=== PATIENT | female | born 1960 | race Caucasian/White ===

== ENCOUNTER 2016-06-28 10:51 | Observation (INO) | payer BC ==
[2016-06-30] MEDS ORDERED: CELEBREX100 MG PO (08:16)
[2016-06-30] MEDS ORDERED: MONTELUKAST SOD10 MG PO (08:16)
[2016-06-30] MEDS ORDERED: PLAQUENIL DPS200 MG PO (08:17)
[2016-06-30] MEDS ORDERED: ACCUNEB DP0.63 MG/3 IH (08:17)
[2016-06-30] MEDS ORDERED: SYNTHROID PO (08:17)
[2016-06-30] MEDS ORDERED: SYMBICORT160 MCG/6 IH (08:17)
[2016-06-30] MEDS ORDERED: NORCO 5-325 TA1 EACH PO (08:18)
== END 2016-06-28 17:02 | disposition home or self-care (01) ==
DX: K35.80 Unspecified acute appendicitis (principal); E03.9 Hypothyroidism, unspecified; Z98.51 Tubal ligation status; Z79.899 Other long term (current) drug therapy; Z98.890 Other specified postprocedural states